=== PATIENT | female | born 1960 | race Caucasian/White ===

== ENCOUNTER 2016-11-28 11:35 | Emergency (ER) | payer OTHER ==
[~2016-11-28] VITALS: Ht 157.5 cm; Wt 52.0 kg
[~2016-11-28 11:35] MED LIST: CLIN-73 PO; ESOM40CA PO; FLUO10TA PO; GABA100C14 PO; HYDR-762 PO; IBUP400T22 PO; INSU100C SC; LANT3I SC; LISI20TA11 PO; METF1000 PO; METH750T93 PO; NAPR-688 PO; SIMV20TA PO
[2016-11-28 11:43] VITALS: Ht 157.5 cm; Wt 52.0 kg
[2016-11-28] MEDS ORDERED: BENZ100C70 PO (12:38)
[2016-11-28] MEDS ORDERED: CETI10CA PO (12:38)
[2016-11-28] MEDS ORDERED: IBUP-1542 PO (12:38)
--- NOTE | 2016-11-28 13:14 | ERD ---
ER Documentation Chief Complaint Date/Time DATE: 11/28/16 TIME: 13:12 Chief Complaint Complains of a cough x 3 days HPI 56-year-old female history of diabetes presents with a dry cough for 3 days associated with sore throat, rhinorrhea. She states she has a burning pain in her throat, cough has been dry. She denies shortness breath, chest pain. She denies leg swelling, abdominal pain. ROS All systems reviewed and are negative except as per history of present illness. Medications Home Meds Active Scripts Cetirizine Hcl* (Zyrtec*) 10 Mg Capsule, 10 MG PO DAILY, #10 TAB.CHEW Prov:DAINA WATKINS PA-C 11/28/16 Ibuprofen* (Motrin*) 600 Mg Tab, 600 MG PO Q6, #30 TAB Prov:DAINA WATKINS PA-C 11/28/16 Benzonatate* (Tessalon Perle*) 100 Mg Capsule, 100 MG PO Q8H Y for COUGH, #30 CAP Prov:DAINA WATKINS PA-C 11/28/16 Ibuprofen* (Motrin*) 400 Mg Tab, 400 MG PO Q8, #20 TAB Prov:CALE ANTUNEZ DO 02/25/16 Clindamycin Hcl* (Clindamycin Hcl*) 300 Mg Capsule, 300 MG PO TID for 10 Days, CAP Prov:CALE ANTUNEZ DO 02/25/16 Hydrocodone Bit-Acetaminophen* ([place]*) 10-325 Mg Tablet, 1 TAB PO Q6 Y for PAIN , #20 TAB Prov:CLAY CANNON DO 09/27/15 Methocarbamol* (Robaxin*) 750 Mg Tablet, 750 MG PO TID, #20 TAB Prov:TAMIR CANNONSTSTEWART ALakshmi DO 09/27/15 Reported Medications Naproxen* (Naproxen*) 500 Mg Tablet, 500 MG PO BID Y for PAIN, TAB 09/27/15 Gabapentin* (Gabapentin*) 100 Mg Capsule, 200 MG PO QPM, #180 CAP 09/27/15 Esomeprazole Mag Trihydrate (Nexium) 40 Mg Capsule.dr, 40 MG PO DAILY, #30 CAP 09/27/15 Simvastatin* (Zocor*) 20 Mg Tablet, 20 MG PO QHS, #30 TAB 09/27/15 Metformin Hcl* (Metformin Hcl*) 1,000 Mg Tablet, 1000 MG PO WITH BREAKFAST DINNE , #30 TAB 09/27/15 Lisinopril* (Lisinopril*) 20 Mg Tablet, 20 MG PO DAILY, #30 TAB 09/27/15 Fluoxetine Hcl* (Prozac*) 10 Mg Tablet, 10 MG PO DAILY, TAB 09/27/15 Insulin Glargine* (Lantus*) 100 Unit/Ml Soln, 45 UNIT SC QHS, #1 VIAL 09/27/15 Insulin Lispro (Humalog) 100 U/Ml Cartridge, 30 UNITS SC WITH BREAKFAST, EA 09/27/15 Allergies Allergies: Coded Allergies: No Known Allergy (Unverified , 09/27/15) PMhx/Soc Hx Cardiac Disorders: Yes (HTN) Hx Miscellaneous Medical Probl: Yes (GASTRITIS, DM) Hx Alcohol Use: No Hx Substance Use: No Hx Tobacco Use: No Smoking Status: Never smoker Physical Exam Vitals Vital Signs Date Time Temp Pulse Resp B/P Pulse Ox O2 Delivery O2 Flow Rate FiO2 11/28/16 11:43 98.3 92 20 149/85 98 Physical Exam General: Well-developed, well-nourished. The patient appears in no acute distress. HEENT: Head is normocephalic, atraumatic. No scleral icterus. Neck: Supple. Nontender. TMs normal, oropharynx clear Lungs: Clear to auscultation. Normal air movement. Heart: Regular rate and rhythm. S1 and S2 are normal. No murmurs, gallops, or rubs. Abdomen: Nondistended. Extremities: No clubbing or cyanosis. Moving extremities x 4. No weakness. Neurologic: Alert and oriented 3. No focal deficits. Normal speech and gait. Skin: Normal turgor. No rash or lesions. Procedures/MDM The patient is a 56-year-old female who comes in with an acute upper respiratory infection, presumed viral. The patient has a differential diagnosis of a viral upper respiratory infection, bacterial upper respiratory infection, bronchitis, pneumonia, pharyngitis, laryngitis, epiglottitis, croup, pneumonia. Patient has a normal pulmonary examination, clear breath sounds, normal pulse oximetry, with no corrective measures needed at this time. Fluids, rest, antipyretics were encouraged. Patient's blood pressure was elevated (>120/80) but appears stable without evidence of hypertension emergency or urgency. The patient was counseled about the risks of hypertension and urged to pursue outpatient monitoring and therapy within a week with their primary care physician. Departure Diagnosis: Primary Impression: Cough Condition: Good Patient Instructions: Uri, Viral, No Abx (Adult) Additional Instructions: Llame al doctor MAANA y aquilino charis ALEX PARA DENTRO DE 1-2 LAMBERT.Dgale a la secretaria que nosotros le instruimos hacer esta alex.Avise o llame si diaz condicin se empeora antes de la alex. Regresa aqui si peor o no mejor. DAINA WATKINS PA-C Nov 28, 2016 13:14
== END 2016-11-28 12:56 | disposition home or self-care (01) ==
LOC: FTE 11:35
DX: R05 Cough (principal); I10 Essential (primary) hypertension; E11.9 Type 2 diabetes mellitus without complications; Z79.4 Long term (current) use of insulin; Z79.84 Long term (current) use of oral hypoglycemic drugs
CPT/HCPCS: 99283